=== PATIENT | female | born 1990 ===

== ENCOUNTER 2017-06-02 14:12 | Emergency (ER) | payer SELFPAY ==
[2017-06-02 14:51] VITALS: BP 113/60
[2017-06-02] MEDS ORDERED: Metoclopramide IV* 5 MG/ML 2 ML VIAL IV ONE (15:25)
--- NOTE | 2017-06-02 15:32 | ED ---
Abdominal Pain/Female - HPI Summary HPI Summary: 27 yr old female with the complaint of NVD, fever, abdominal pain located left upper and left lower quadrant of her abdomen. She states she had a temperature of 101 degrees last night. Pain is 9/10 in her abdomen. She states she does not get regular periods. She doesn't know her last menstrual period. She last urinated 6 hours ago. She states she has an 8/10 headache as well. - History of Current Complaint Chief Complaint: UCGI Stated Complaint: VOMITINGX 4DAYS-STOMACH PAIN-DIABETIC Time Seen by Provider: 06/02/17 15:17 Hx Last Menstrual Period: DOES NOT HAVE REG PERIODS HAS NEXPLAMON Allergies/Adverse Reactions: Allergies Allergy/AdvReac Type Severity Reaction Status Date / Time Bee Venom Allergy Severe Anaphylatic Verified 06/02/17 14:38 Shock Grape (Artificial) Flavor Allergy Severe Anaphylatic Verified 06/02/17 14:38 Shock Levalbuterol Hydrochloride Allergy Severe cardiac Verified 06/02/17 14:35 [From Xopenex] arest Lurasidone [From Latuda] Allergy Severe Anaphylatic Verified 06/02/17 14:35 Shock Ziprasidone Allergy Severe Anaphylatic Verified 06/02/17 14:35 [From Geodon Capsules] Shock zofran- grape flavored Allergy Severe Anaphylatic Uncoded 06/02/17 14:38 Shock Home Medications: Home Medications Etonogestrel [Nexplanon] 06/02/17 [History] Insulin REGULAR(*) 1 units SUBCUT ONCE PRN 06/02/17 [History Confirmed 06/02/17] PMH/Surg Hx/FS Hx/Imm Hx Endocrine/Hematology History: Reports: Hx Diabetes Respiratory History: Reports: Hx Asthma, Hx Chronic Obstructive Pulmonary Disease (COPD) GI History: Reports: Hx Irritable Bowel - Surgical History Surgery Procedure, Year, and Place: SPINAL SURGERY AFTER FALL. MULTIPLE INJURIES FROM FALL. 2 C-SECTIONS Infectious Disease History: No Infectious Disease History: Denies: Traveled Outside the [place] in Last 30 Days - Family History Known Family History: Positive: Cardiac Disease, Diabetes, Respiratory Disease - Social History Alcohol Use: None Substance Use Type: Reports: Marijuana Smoking Status (MU): Light Every Day Tobacco Smoker Type: Cigarettes Amount Used/How Often: 1/2 PPD Review of Systems Positive: Fever, Chills Positive: Abdominal Pain, Vomiting, Diarrhea, Nausea Positive: Headache All Other Systems Reviewed And Are Negative: Yes Physical Exam Triage Information Reviewed: Yes Vital Signs On Initial Exam: Initial Vitals Temp Pulse Resp BP Pulse Ox 98.4 F 67 18 113/60 100 06/02/17 14:39 06/02/17 14:39 06/02/17 14:39 06/02/17 14:39 06/02/17 14:39 Vital Signs Reviewed: Yes Appearance: Positive: Ill-Appearing Skin: Positive: Warm, Skin Color Reflects Adequate Perfusion Head/Face: Positive: Normal Head/Face Inspection Eyes: Positive: EOMI ENT: Positive: Hearing grossly normal Neck: Positive: Nontender Respiratory/Lung Sounds: Positive: Clear to Auscultation, Breath Sounds Present Cardiovascular: Positive: RRR. Negative: Murmur Abdomen Description: Positive: Other: - tender in the left upper and left lower quadrants. Musculoskeletal: Positive: Strength/ROM Intact Neurological: Positive: Sensory/Motor Intact, Alert, Oriented to Person Place, Time, CN Intact II-III, Speech Normal Psychiatric: Positive: Normal - Joel Coma Scale Best Eye Response: 4 - Spontaneous Best Motor Response: 6 - Obeys Commands Best Verbal Response: 5 - Oriented Diagnostics - Vital Signs Vital Signs Temp Pulse Resp BP Pulse Ox 06/02/17 14:39 98.4 F 67 18 113/60 100 - Laboratory Lab Results: Lab Results 06/02/17 Range/Units 14:54 POC Glucose (mg/dL) 84 (70-100) mg/dL Lab Statement: Any lab studies that have been ordered have been reviewed, and results considered in the medical decision making process. Abdominal Pain Fem Course/Dx - Course Course Of Treatment: case DW Dr Hofmfan at [facility] - [place], and the patient will go to the hospital for work up of her abdominal pain and vomiting. - Diagnoses Provider Diagnoses: Abdominal pain, Vomiting, Headache Discharge - Discharge Plan Condition: Good Disposition: TRANS HIGHER L OF CARE FAC
== END 2017-06-02 15:46 | disposition short-term general hospital (02) ==
LOC: UCCORT 14:12
DX: R10.9 Unspecified abdominal pain (principal); R11.10 Vomiting, unspecified; R51 Headache; E11.9 Type 2 diabetes mellitus without complications; J44.9 Chronic obstructive pulmonary disease, unspecified; K58.9 Irritable bowel syndrome, unspecified; F12.90 Cannabis use, unspecified, uncomplicated; F17.210 Nicotine dependence, cigarettes, uncomplicated; Z91.030 Bee allergy status; Z79.4 Long term (current) use of insulin
CPT/HCPCS: 96374; 99203; G0463; J2765

== ENCOUNTER 2018-08-03 16:57 | Emergency (ER) | payer OTHER ==
[2018-08-03 17:12] VITALS: BP 146/73
--- NOTE | 2018-08-03 17:29 | UC ---
Abdominal Pain Female HPI - HPI Summary HPI Summary: 28 yo patient who states she has severe abdominal pain on her right side and pelvis. She states it was moderate in intensity yesterday but recurred this afternoon. She stopped eating at noon, 'because the pain was severe and I knew I was going to see the doctor'. She denies nausea, vomiting. She states she had diarrhea several days ago and was taking an anti-diarrheal medication and has no BM for the past 2 days. She states she is convinced she is , even though the urine tests have been negative and that she needs a rhogam to prevent miscarriage. She has been having menses every month but last one at the beginning of June was only spotting. Denies chills, fever, flank pain, vaginal discharge or disuria. She smokes half pack a day cigarettes and marihuana occasionally - History of Current Complaint Chief Complaint: UCAbdominalPain Stated Complaint: SEVERE ABD PAIN Hx Obtained From: Patient Hx Last Menstrual Period: spotting ~07/26/18 ?: No Onset/Duration: Sudden Onset, Lasting Days Severity Initially: Moderate Severity Currently: Severe Pain Intensity: 9 Location: Discrete At: RUQ, Discrete At: RLQ, Suprapubic Character: Aching, Sharp Aggravating Factor(s): Nothing Alleviating Factor(s): Nothing Associated Signs and Symptoms: Positive: Constipation - Risk Factors Ectopic Risk Factor: Negative Allergies/Adverse Reactions: Allergies Allergy/AdvReac Type Severity Reaction Status Date / Time grape flavor Allergy Anaphylatic Verified 08/03/18 17:07 Shock lurasidone [From Latuda] Allergy Anaphylatic Verified 08/03/18 17:07 Shock ondansetron Allergy Anaphylatic Verified 08/03/18 17:07 Shock Home Medications: Home Medications Acetaminophen [Acetaminophen Extra Strength] 500 - 1,000 mg PO Q6H PRN 08/03/18 [History Confirmed 08/03/18] Aspirin EC TAB* [Ecotrin EC Low Dose 81 MG*] 81 mg PO DAILY 08/03/18 [History Confirmed 08/03/18] PMH/Surg Hx/FS Hx/Imm Hx Previously Healthy: Yes - Surgical History Surgical History: Yes Surgery Procedure, Year, and Place: SPINAL SURGERY AFTER FALL. MULTIPLE INJURIES FROM FALL. 2 C-SECTIONS - Family History Known Family History: Positive: Cardiac Disease, Diabetes, Respiratory Disease - Social History Alcohol Use: None Substance Use Type: Marijuana Substance Use Comment - Amount & Last Used: Daily & 08/03/18 Smoking Status (MU): Light Every Day Tobacco Smoker Type: Cigarettes Amount Used/How Often: < 1/2 PPD Length of Time of Smoking/Using Tobacco: Since Age 20 Household Exposure Type: Cigarettes Review of Systems All Other Systems Reviewed And Are Negative: Yes Gastrointestinal: Positive: Abdominal Pain Physical Exam Triage Information Reviewed: Yes Appearance: Pain Distress, Obese Vital Signs: Initial Vital Signs Temp 98.4 F 08/03/18 17:07 Pulse 124 08/03/18 17:07 Resp 28 08/03/18 17:07 BP 146/73 08/03/18 17:07 Pulse Ox 100 08/03/18 17:07 Vital Signs Reviewed: Yes Eyes: Positive: Conjunctiva Clear ENT: Positive: Hearing grossly normal, Pharynx normal Neck: Positive: Supple, Nontender, No Lymphadenopathy Respiratory: Positive: Chest non-tender, Lungs clear, Normal breath sounds, No respiratory distress Cardiovascular: Positive: RRR, No Murmur, Pulses Normal, Brisk Capillary Refill Abdomen Description: Positive: No Organomegaly, Guarding, Other: - tender on RUQ and RLQ Bowel Sounds: Positive: Present Musculoskeletal Exam: Normal Musculoskeletal: Positive: Strength Intact, ROM Intact Neurological: Positive: Alert Psychological: Positive: Other: - flight of ideas, verborrhea Abd Pain Female Course/Dx - Course Course Of Treatment: Patient with acute abdominal pain, with tenderness on right upper and lower quadrants. Patient was referred to [facility] for further evaluation of her symptoms. Patient states she will go with her boyfriend, who is driving her there. - Differential Dx/Diagnosis Provider Diagnoses: Elevated BP without diagnosis of HTN. Acute abdominal pain Discharge - Sign-Out/Discharge Documenting (check all that apply): Patient Departure All imaging exams completed and their final reports reviewed: No Studies - Discharge Plan Condition: Stable Disposition: HOME Patient Education Materials: Acute Abdominal Pain (ED) Referrals: Porsha Gerard MD [Primary Care Provider] - Additional Instructions: You were referred to [facility] Room to be further evaluated for acute abdominal pain. Please proceed to the Emergency room - Billing Disposition and Condition Condition: STABLE Disposition: Home
== END 2018-08-03 17:28 | disposition home or self-care (01) ==
LOC: UCCORT 16:57
DX: R10.9 Unspecified abdominal pain (principal); R03.0 Elevated blood-pressure reading, without diagnosis of hypertension; F17.210 Nicotine dependence, cigarettes, uncomplicated; Z91.018 Allergy to other foods; Z88.8 Allergy status to other drugs, medicaments and biological substances; Z79.82 Long term (current) use of aspirin
CPT/HCPCS: 99212; G0463

== ENCOUNTER 2018-10-22 17:03 | Emergency (ER) | payer MEDICAID, OTHER ==
[2018-10-22 18:02] VITALS: BP 112/60
--- NOTE | 2018-10-22 18:53 | UC ---
Dental HPI - HPI Summary HPI Summary: 28-year-old female here with a chief complaint of dental abscess. She has a known bad tooth left lower molar. 2 days ago she started with some gingival swelling and not spread into her cheek. She's got pain is worse with chewing. The abscess did rupture while in the waiting room which did decrease her pain some. - History of Current Complaint Chief Complaint: UCDentalProblem Stated Complaint: DENTAL COMPLAINT Time Seen by Provider: 10/22/18 18:44 Hx Last Menstrual Period: spotting ~07/26/18 Pain Intensity: 10 - Allergies/Home Medications Allergies/Adverse Reactions: Allergies Allergy/AdvReac Type Severity Reaction Status Date / Time grape flavor Allergy Anaphylatic Verified 08/03/18 17:07 Shock lurasidone [From Latuda] Allergy Anaphylatic Verified 08/03/18 17:07 Shock ondansetron Allergy Anaphylatic Verified 08/03/18 17:07 Shock Home Medications: Home Medications Ibuprofen 600 mg PO Q8HR 10/22/18 [History Confirmed 10/22/18] Naproxen [Naproxen 250 mg tab] 250 mg PO BID 10/22/18 [History Confirmed ] PMH/Surg Hx/FS Hx/Imm Hx Previously Healthy: Yes Cardiovascular History: Cardiac Disease - reports hx heart attacks Neurological History: Other - reports hx of stroke - Surgical History Surgical History: Yes Surgery Procedure, Year, and Place: SPINAL SURGERY AFTER FALL. MULTIPLE INJURIES FROM FALL. 2 C-SECTIONS. WISDOM TEETH REMOVED - Family History Known Family History: Positive: Cardiac Disease, Diabetes, Respiratory Disease - Social History Alcohol Use: None Substance Use Type: Marijuana Substance Use Comment - Amount & Last Used: Daily Smoking Status (MU): Heavy Every Day Tobacco Smoker Type: Cigarettes Amount Used/How Often: < 1/2 PPD Length of Time of Smoking/Using Tobacco: Since Age 20 Household Exposure Type: Cigarettes Review of Systems All Other Systems Reviewed And Are Negative: Yes Constitutional: Positive: Negative Skin: Positive: Negative Eyes: Positive: Negative ENT: Positive: Dental Pain Respiratory: Positive: Negative Cardiovascular: Positive: Negative Gastrointestinal: Positive: Negative Motor: Positive: Other - uses a cane Neurovascular: Positive: Other - uses a cane Musculoskeletal: Positive: Other: - uses a cane Neurological: Positive: Other - uses a can Psychological: Positive: Negative Is Patient Immunocompromised?: Yes - patient reports she is immunocompromised Physical Exam Triage Information Reviewed: Yes Appearance: Well-Appearing, Well-Nourished, Pain Distress - mild/moderate Vital Signs: Initial Vital Signs Temp 99.1 F 10/22/18 17:59 Pulse 113 10/22/18 17:59 Resp 19 10/22/18 17:59 BP 112/60 10/22/18 17:59 Pulse Ox 100 10/22/18 17:59 Vital Signs Reviewed: Yes Eye Exam: Normal Eyes: Positive: Conjunctiva Clear ENT: Positive: Pharynx normal, Uvula midline. Negative: Muffled voice, Hoarse voice Dental: Positive: Gross Decay/Caries @ - left lower, Abscess @ - left lower Neck exam: Normal Neck: Positive: Supple Respiratory: Positive: No respiratory distress Musculoskeletal: Positive: ROM Intact Neurological: Positive: Alert Psychological: Positive: Age Appropriate Behavior Skin Exam: Normal Dental Complaint Course/Dx - Differential Dx/Diagnosis Provider Diagnosis: Dental abscess Discharge - Sign-Out/Discharge Documenting (check all that apply): Patient Departure All imaging exams completed and their final reports reviewed: No Studies - Discharge Plan Condition: Stable Disposition: HOME Prescriptions: Penicillin VK 500 MG TAB(NF) [Penicillin VK 500 mg Tab] 500 mg PO QID #40 tab traMADol TAB* [Ultram*] 50 mg PO Q6HR PRN #15 tab MDD 4 PRN Reason: Pain (Dental) Patient Education Materials: Dental Abscess (ED) Referrals: [facility] [Outside] Additional Instructions: FOLLOW UP WITH YOUR DENTIST. GET RECHECKED SOONER WITH ANY WORSENING OF YOUR CONDITION OR QUESTIONS OR CONCERNS. - Billing Disposition and Condition Condition: STABLE Disposition: Home
== END 2018-10-22 19:01 | disposition home or self-care (01) ==
LOC: UCCORT 17:03
DX: K04.7 Periapical abscess without sinus (principal); F17.210 Nicotine dependence, cigarettes, uncomplicated; Z88.8 Allergy status to other drugs, medicaments and biological substances; Z91.02 Food additives allergy status
CPT/HCPCS: 99212; G0463